=== PATIENT | male | born 1990 | race African-American/Black ===

== ENCOUNTER 2017-06-17 15:08 | Emergency (ER) | payer MEDICAID ==
[2017-06-17 15:18] VITALS: BP 102/73; BMI 25.9
--- NOTE | 2017-06-19 12:41 | DR.EXTPAIN ---
HPI - PCP Primary Care Physician: KAILYN - Complaint/Symptoms Chief Complaint:: CUT FINGER AND FEELING FAINT Self Treatment fo Chief Complaint: BANDAID TO SITE. - Source History Provided: Patient - Mode of arrival Mode of Arrival: Ambulatory - Timing Onset of Chief Complaint: 06/17/17 PMH - PMH Past Medical History: Yes Past Medical History: Asthma Past Surgical History: No - Family History History of Family Medical Conditions: Yes Family Medical History: Diabetes Mellitus - Social History Type of Tobacco Use: Cigarettes Does any household member use tobacco: No Alcohol Use: None Do you use any recreational Drugs:: No Lives With: Family Lives Where: Home - infectious screening In the last 2 months have you had wt loss of >10#?: NO Have you had fever, night sweats or hemotysis?: No Have you traveled outside the country in the last 6 months?: No Isolation: Standard PE - Vital Signs Vitals: Temperature 97.8 F Pulse Rate 65 Respiratory Rate 20 Blood Pressure 102/73 O2 Sat by Pulse Oximetry 96 - Discharge Plan Disposition: LWBS After Triage Condition: Stable - Follow ups/Referrals Follow ups/Referrals: FORREST AVINA [Primary Care Provider] - 3 days - Instructions
== END 2017-06-17 18:05 | disposition left against medical advice (07) ==
LOC: ER 15:08
DX: S61.219A Laceration without foreign body of unspecified finger without damage to nail, initial encounter (principal); W45.8XXA Other foreign body or object entering through skin, initial encounter; Y92.9 Unspecified place or not applicable
CPT/HCPCS: 99281